=== PATIENT | female | born 1975 | race Caucasian/White ===

== ENCOUNTER 2017-03-05 14:38 | Emergency (ER) | payer BC, MEDICAID ==
[~2017-03-05] VITALS: Ht 165.1 cm; Wt 129.7 kg
[2017-03-05 15:14] VITALS: BP 119/85
[2017-03-05] MEDS ORDERED: LOSA25TA22 PO (15:18)
--- NOTE | 2017-03-05 19:26 | NUR ---
PT TAKEN TO BED 7
--- NOTE | 2017-03-05 19:30 | NUR ---
41Y F BIB FAMILY C/O FEVER X2 DAYS, ABDOMINAL PAIN 5/10, VOMITING X1 TOSAY. PT IS AAOX4, NO S/S OF SOB/DISTRESS, LUNG SOUNDS CLEAR BL, DENIES CHEST PAIN, HR EVEN AND REGULAR; DENIES N/V/D; SKIN IS PINK/WARM/DRY; AMBULATORY WITH STEADY GAIT. PATIENT POSITIONED FOR COMFORT; HOB ELEVATED; BEDRAILS UP X2; BED DOWN. ER MD MADE AWARE OF PT STATUS.
--- NOTE | 2017-03-05 19:49 | NUR ---
Dr. Cabral evaluating patient at bedside.
[2017-03-05] MEDS ORDERED: NACL 0.9% 1,000 ML IV ONE (19:55)
--- NOTE | 2017-03-05 20:00 | NUR ---
CHEST X-RAY DONE AT BEDSIDE.
[2017-03-05 20:21] LABS: BASOPHILS # (AUTO) 0.2 K/uL (0.00-0.22); BASOPHILS % (AUTO) 1.2 % (0.0-2.0); EOSINOPHILS # (AUTO) 0.2 K/uL (0-0.4); EOSINOPHILS % (AUTO) 1.2 % (0.0-4.0); HEMATOCRIT 40.7 % (36-48); HEMOGLOBIN 13.1 g/dL (12.0-16.0); LYMPHOCYTES # (AUTO) 1.9 K/uL (2.5-16.5); MEAN CORPUSCULAR HEMOGLOBIN 31 pg (27-31); MEAN CORPUSCULAR HGB CONC 32 g/dL (33-37); MEAN CORPUSCULAR VOLUME 95 fL (80-94); MONOCYTES # (AUTO) 1.3 K/uL (0.8-1.0); MONOCYTES % (AUTO) 9.7 % (1.7-9.3); NEUTROPHILS # (AUTO) 9.8 K/uL (1.8-7.7); NEUTROPHILS % (AUTO) 73.9 % (42.2-75.2); PLATELET COUNT (AUTO) 210 K/uL (140-450); RED BLOOD CELL COUNT(AUTO) 4.29 MIL/uL (4.20-5.40); RED CELL DISTRIBUTION WIDTH 12.6 % (11.6-13.7); WHITE BLOOD COUNT (AUTO) 13.4 K/uL (4.8-10.8)
[2017-03-05 20:36] LABS: ANION GAP 11.3 (8-16); CALCIUM 8.6 mg/dL (8.5-10.1); CARBON DIOXIDE 28.2 mmol/L (21-32); CREATININE 1.3 mg/dL (0.6-1.3); POTASSIUM 3.5 mmol/L (3.5-5.1)
[2017-03-05 20:42] LABS: ALBUMIN 3.3 g/dL (3.4-5.0); TOTAL BILIRUBIN 1.2 mg/dL (0.0-1.0); TOTAL PROTEIN, SERUM 8.1 g/dL (6.4-8.2)
[2017-03-05 22:10] VITALS: BP 124/86
--- NOTE | 2017-03-05 22:10 | NUR ---
Patient discharged with v/s stable. Written and verbal after care instructions given and explained. Patient alert, oriented and verbalized understanding of instructions. Ambulatory with steady gait. All questions addressed prior to discharge. ID band removed, IV SITE REMOVED. Patient advised to follow up with PMD. Rx of AZITHROMYCIN, PRILOSEC, DETROMETHORPHAN HYDROBROMIDE given. Patient educated on indication of medication including possible reaction and side effects. Opportunity to ask questions provided and answered.
== END 2017-03-05 22:10 | disposition home or self-care (01) ==
LOC: MED 14:38
DX: J18.9 Pneumonia, unspecified organism (principal); I10 Essential (primary) hypertension; E03.9 Hypothyroidism, unspecified; Z90.49 Acquired absence of other specified parts of digestive tract
CPT/HCPCS: 36415; 71010; 80053; 81002; 81025; 82550; 82553; 83690; 84484; 85025; 96360; 99285; J7030

== ENCOUNTER 2018-01-11 09:54 | Emergency (ER) | payer BC, MEDICAID ==
[~2018-01-11] VITALS: Ht 175.3 cm; Wt 129.3 kg
[~2018-01-11 09:54] MED LIST: LOSA25TA22 PO
[2018-01-11 09:55] VITALS: BP 161/113
--- NOTE | 2018-01-11 10:11 | NUR ---
PT PLACED IN [facility], DR CASTELLANOS AWARE.
--- NOTE | 2018-01-11 10:40 | NUR ---
PT RETUERNED FROM X RAY VIA W/C TO BED 12.
--- NOTE | 2018-01-11 10:41 | NUR ---
42/F BIB SELF C/O INTERMITENT LEFT CHEST PAIN X THIS AM. PT ALSO REPORTS FEELING NUMB TO RT FACE SIDE , RIGHT NECK & RIGHT SIDE DAVIS SINCE YESTERDAY 3PM. STEADY [place], SPEAKING FULL CLEAR SENTENCES, RIGHT FACIAL DROOP NOTED. MED RX: HTN, HYPOTHYROIDISM.RX: LOSARTAN.DENIES N/V/D; SKIN IS PINK/WARM/DRY; AAOX4. LUNGS CLEAR BL. PT DENIES ANY FEVER OR SOB AT THIS TIME; PATIENT STATES PAIN OF 5/10 AT THIS TIME. PATIENT POSITIONED FOR COMFORT; HOB ELEVATED; BEDRAILS UP X2; BED DOWN. ER MD MADE AWARE OF PT STATUS.
[2018-01-11 10:57] LABS: BASOPHILS # (AUTO) 0.2 K/uL (0.00-0.22); BASOPHILS % (AUTO) 2.7 % (0.0-2.0); EOSINOPHILS # (AUTO) 0.1 K/uL (0-0.4); EOSINOPHILS % (AUTO) 0.8 % (0.0-4.0); HEMATOCRIT 44.7 % (36-48); HEMOGLOBIN 15.1 g/dL (12.0-16.0); LYMPHOCYTES # (AUTO) 1.7 K/uL (2.5-16.5); LYMPHOCYTES % (AUTO) 20.1 % (20.5-51.1); MEAN CORPUSCULAR HEMOGLOBIN 32 pg (27-31); MEAN CORPUSCULAR HGB CONC 34 g/dL (33-37); MEAN CORPUSCULAR VOLUME 94 fL (80-94); MONOCYTES # (AUTO) 0.3 K/uL (0.8-1.0); MONOCYTES % (AUTO) 3.1 % (1.7-9.3); NEUTROPHILS % (AUTO) 73.3 % (42.2-75.2); PLATELET COUNT (AUTO) 302 K/uL (140-450); RED BLOOD CELL COUNT(AUTO) 4.76 MIL/uL (4.20-5.40); WHITE BLOOD COUNT (AUTO) 8.3 K/uL (4.8-10.8)
[2018-01-11 11:28] LABS: ALBUMIN 3.8 g/dL (3.4-5.0); ANION GAP 15.8 (8-16); CARBON DIOXIDE 25.9 mmol/L (21-32); CREATININE 0.8 mg/dL (0.6-1.3); POTASSIUM 3.7 mmol/L (3.5-5.1); PROTHROMBIN TIME 10.6 secs (10.8-13.4); TOTAL BILIRUBIN 0.5 mg/dL (0.0-1.0)
[2018-01-11] MEDS: KETOROLAC 60 MG/2 ML VIAL IM ONE (12:16)
[2018-01-11 12:26] VITALS: BP 147/97
--- NOTE | 2018-01-11 12:26 | NUR ---
Patient discharged with BP 147/97;DENIES DAVIS AT THIS TIME; MADE AWARE. Written and verbal after care instructions given and explained. Patient alert, oriented and verbalized understanding of instructions. Ambulatory with steady gait. All questions addressed prior to discharge. ID band removed. Patient advised to follow up with PMD. Rx of MOTRIN given. Patient educated on indication of medication including possible reaction and side effects. Opportunity to ask questions provided and answered.
== END 2018-01-11 12:26 | disposition home or self-care (01) ==
LOC: MED 09:54
DX: R07.9 Chest pain, unspecified (principal); R20.0 Anesthesia of skin; M54.2 Cervicalgia; I10 Essential (primary) hypertension; E03.9 Hypothyroidism, unspecified; Z90.49 Acquired absence of other specified parts of digestive tract
CPT/HCPCS: 36415; 71045; 80053; 83880; 84484; 85025; 85610; 85730; 93005; 96372; 99285; J1885

== ENCOUNTER 2019-06-15 01:14 | Emergency (ER) | payer OTHER, MEDICAID ==
[~2019-06-15] VITALS: Ht 175.3 cm; Wt 100.7 kg
[~2019-06-15 01:14] MED LIST changes: -LOSA25TA22 PO; +LOSA25TA43 PO
[2019-06-15 01:18] VITALS: BP 136/84
--- NOTE | 2019-06-15 01:20 | NUR ---
PT TAKEN TO BED 12
[2019-06-15] MEDS ORDERED: ONDANSETRON 4 MG ODT PO ONE (01:30)
--- NOTE | 2019-06-15 01:30 | NUR ---
PT CAME TO ER C/O EPIGASTRIC PAIN SINCE LAST NIGHT. PT PAIN LEVEL 8/10, CRAMPING, PAIN COMES AND GOES. BOWEL SOUNDS ACTIVE X 4 QUADRANTS. EPIGASTRIC REGION TENDER TO TOUCH. PT HAS NAUSEA AND SELF INDUCED VOMIT X 2. PT ALSO HAD 3 EPISODE OF DIARRHEA. NKA. MED HX: HYPOTHYROIDISM AND HTN. PT NONCOMPLIANT WITH MEDICATION. SAFETY MEASURES IN PLACE. ERMD MADE AWARE OF PT STATUS.
--- NOTE | 2019-06-15 01:45 | NUR ---
PT AMBULATED TO RESTROOM
--- NOTE | 2019-06-15 01:52 | NUR ---
Dr. Doran examining patient.
[2019-06-15] MEDS ORDERED: KETOROLAC 60 MG/2 ML VIAL IM ONE (01:55)
--- NOTE | 2019-06-15 02:17 | NUR ---
Patient discharged with v/s stable. Written and verbal after care instructions given and explained. Pt encouraged to rest and drink plenty of fluids. Patient alert, oriented and verbalized understanding of instructions. Ambulatory with steady gait. All questions addressed prior to discharge. ID band removed. Patient advised to follow up with PMD. Rx of ZOFRAN, MOTRIN, PRILOSEC, AND IMODIUM WAS given. Patient educated on indication of medication including possible reaction and side effects. Opportunity to ask questions provided and answered.
[2019-06-15 02:18] VITALS: BP 143/85
== END 2019-06-15 02:17 | disposition home or self-care (01) ==
LOC: MED 01:14
DX: R10.13 Epigastric pain (principal); R11.2 Nausea with vomiting, unspecified; R19.7 Diarrhea, unspecified; I10 Essential (primary) hypertension; E03.9 Hypothyroidism, unspecified; Z90.49 Acquired absence of other specified parts of digestive tract; Z79.899 Other long term (current) drug therapy
CPT/HCPCS: 81002; 81025; 96372; 99283; J1885; Q0162

== ENCOUNTER 2021-06-27 10:53 | Emergency (ER) | payer OTHER, MEDICAID ==
[~2021-06-27] VITALS: Ht 175.3 cm; Wt 95.3 kg
[2021-06-27 11:10] VITALS: BP 162/110
--- NOTE | 2021-06-27 11:20 | NUR ---
Patient ambulated to bed 11
--- NOTE | 2021-06-27 11:22 | NUR ---
Patient is a 46 y/o female c/o left sided facial numbness and headache x2 days. Patient describes the pain a throbbing pain that does not radiate and 3/10 (ear) and 5/10 (head) on a pain scale; has not tried any medication or alleviating treatments for the pain. Patient notes that she has a history for HTN which patient states she is not taking. Patient denies slurred speech, gait imbalance, weakness in any of her upper or lower extremities. No neurological deficits noted during assessment. Patient reports hx of [place] Palsy on the right side of her face in 2018. Patient denies CP, SOB, lightheaded or dizziness, dysuria, fever, chills, URI symptoms, or recent travel. Rx: denies PMH: HTN, hypothyroid, bells palsy NKA
--- NOTE | 2021-06-27 11:30 | NUR ---
Dr. Cali at the bedside evaluating patient.
[2021-06-27] MEDS ORDERED: ACETAMINOPHEN 325 MG TAB PO ONE (11:40)
[2021-06-27] MEDS ORDERED: predniSONE 20 MG TAB PO ONE (11:40)
[2021-06-27] MEDS ORDERED: VALA1TAB40 PO (11:43)
[2021-06-27] MEDS ORDERED: PRED20TA5 PO (11:43)
[2021-06-27] MEDS ORDERED: LANO1OIN26 OP (11:43)
[2021-06-27] MEDS ORDERED: POLY15SO74 LEFT EYE (11:43)
[2021-06-27] MEDS ORDERED: LOSA25TA32 PO (11:46)
[2021-06-27 12:10] VITALS: BP 162/110
--- NOTE | 2021-06-27 12:10 | NUR ---
Patient discharged with v/s stable. Written and verbal after care instructions given and explained. Patient alert, oriented and verbalized understanding of instructions. Ambulatory with steady gait. All questions addressed prior to discharge. ID band removed. Patient advised to follow up with PMD. Rx of artificial tears eye ointment, cozaar, artificial tears, prednisone, valacyclovir given. Patient educated on indication of medication including possible reaction and side effects. Opportunity to ask questions provided and answered.
== END 2021-06-27 12:10 | disposition home or self-care (01) ==
LOC: MED 10:53
DX: G51.0 Bell's palsy (principal); I10 Essential (primary) hypertension; E03.9 Hypothyroidism, unspecified; Z90.49 Acquired absence of other specified parts of digestive tract; Z79.899 Other long term (current) drug therapy
CPT/HCPCS: 99283; J7512